=== PATIENT | male | born 1965 | race Hispanic/Latino ===

== ENCOUNTER 2021-03-26 03:31 | Emergency (ER) | payer OTHER ==
[~2021-03-26] VITALS: Ht 180.3 cm; Wt 122.5 kg
[2021-03-26 03:48] VITALS: BP 143/76
[2021-03-26] MEDS ORDERED: MORPHINE 4 MG SYG IM SCH (06:30)
[2021-03-26] MEDS ORDERED: IBUPROFEN 600 MG TABLET PO SCH (06:30)
[2021-03-26] MEDS ORDERED: ACET1TAB27 PO (06:58)
== END 2021-03-26 07:57 | disposition home or self-care (01) ==
LOC: EDH 03:31
DX: M75.01 Adhesive capsulitis of right shoulder (principal); E11.9 Type 2 diabetes mellitus without complications; I10 Essential (primary) hypertension; Z79.1 Long term (current) use of non-steroidal anti-inflammatories (NSAID)
CPT/HCPCS: 73030; 96372; 99283; J2270

== ENCOUNTER 2021-03-29 20:30 | Emergency (ER) | payer OTHER ==
[~2021-03-29] VITALS: Ht 180.3 cm; Wt 122.5 kg
[~2021-03-29 20:30] MED LIST: ACET1TAB27 PO
[2021-03-29 20:32] VITALS: BP 130/100
== END 2021-03-29 20:59 | disposition left against medical advice (07) ==
LOC: EDH 20:30
DX: M25.512 Pain in left shoulder (principal); M25.511 Pain in right shoulder; R50.9 Fever, unspecified; E11.9 Type 2 diabetes mellitus without complications; I10 Essential (primary) hypertension
CPT/HCPCS: 99281

== ENCOUNTER → 2021-04-24 | Emergency (ER) | payer OTHER ==
[~2021-04-24] VITALS: Ht 180.3 cm; Wt 125.2 kg
[2021-04-24 11:15] VITALS: BP 114/77
== END | disposition left against medical advice (07) ==
LOC: EDH 11:06
DX: M25.531 Pain in right wrist (principal); Z53.21 Procedure and treatment not carried out due to patient leaving prior to being seen by health care provider

== ENCOUNTER 2022-12-08 21:41 | Inpatient (IN) | payer BC, OTHER ==
[~2022-12-08] VITALS: Ht 175.3 cm; Wt 125.5 kg
[~2022-12-08 21:41] MED LIST changes: -ACET1TAB27 PO; +ACET1TAB97 PO
[2022-12-08] MEDS ORDERED: ACETAMINOPHEN 325 MG TAB PO PRN (23:30)
[2022-12-08] MEDS ORDERED: HYDRALAZINE 20MG/ML VIAL IV PRN (23:30)
[2022-12-08] MEDS ORDERED: MORPHINE 2 MG SYG IVP PRN (23:30)
[2022-12-08] MEDS ORDERED: ALBUTEROL 0.083% 2.5 MG/3 ML INH IH PRN (23:30)
[2022-12-08] MEDS ORDERED: ACETAMINOPHEN 650 MG SUPPOSITORY RC PRN (23:30)
[2022-12-08] MEDS ORDERED: LABETALOL 20MG SYG IV PRN (23:30)
[2022-12-08] MEDS ORDERED: LACTULOSE 20 GM/30 ML UDCUP PO PRN (23:30)
[2022-12-08 23:41] LABS: BASOPHILS # (AUTO) 0.03 K/uL (0.00-0.20); BASOPHILS % (AUTO) 0.4 % (0.0-5.0); EOSINOPHILS % (AUTO) 2.9 % (0.0-8.0); HEMATOCRIT 39.2 % (42-54); IMMATURE GRANULOCYTE ABSOLUTE 0.03 K/uL (0-1); LYMPHOCYTES # (AUTO) 1.1 K/uL (1.0-4.8); LYMPHOCYTES % (AUTO) 16.3 % (21.0-51.0); MEAN CORPUSCULAR HEMOGLOBIN 30.8 pg (27.0-33.0); MEAN CORPUSCULAR HGB CONC 34.4 g/dL (32.0-36.0); MEAN CORPUSCULAR VOLUME 89.5 fL (79-99); MONOCYTES # (AUTO) 0.8 K/uL (0.1-1.0); MONOCYTES % (AUTO) 11.6 % (3.0-13.0); NEUTROPHILS # (AUTO) 4.6 K/uL (1.8-7.7); NEUTROPHILS % (AUTO) 68.4 % (40.0-77.0); PLATELET COUNT (AUTO) 166 K/uL (130-400); RED BLOOD CELL COUNT(AUTO) 4.38 MIL/uL (4.50-6.20); RED CELL DISTRIBUTION WIDTH 12.8 % (11.0-15.5); WHITE BLOOD COUNT (AUTO) 6.8 K/uL (4.8-10.8)
[2022-12-08] MEDS: LACTATED RINGERS 1000ML 1,000 ML IV SCH (23:50)
[2022-12-08 23:54] LABS: INR 0.93 (0.85-1.15); PROTHROMBIN TIME 10.6 SEC (9.6-11.6)
[2022-12-08 23:55] LABS: ALBUMIN 3.2 g/dL (3.5-5.0); BILIRUBIN,TOTAL 0.5 mg/dL (0.2-1.0); TOTAL PROTEIN, SERUM 7.3 g/dL (6.0-8.3)
[2022-12-08 23:56] LABS: PARTIAL THROMBOPLASTIN TIME 29.9 SEC (26.3-35.5)
[2022-12-09] VITALS (20 sets, daily range): BP systolic 106–176; BP diastolic 59–87; PULSE 60–77; RESP 15–20; O2SAT 97
[2022-12-09] MEDS ORDERED: 0.9%NACL 50ML IV SCH
[2022-12-09] MEDS ORDERED: VANCOMYCIN PROTOCOL PER PHARMACY IV SCH
[2022-12-09] MEDS: INSULIN HUMULIN R 100 UNIT/ML 3ML SQ SCH ×4 (00:02→18:00)
[2022-12-09] MEDS: ZOSYN 3.375GM +NS 50ML IVPB SCH ×3 (00:02→16:00)
[2022-12-09 02:11] LABS: HEMOGLOBIN A1C 7.7 % (4.0-6.0)
[2022-12-09 05:20] LABS: BASOPHILS # (AUTO) 0.03 K/uL (0.00-0.20); BASOPHILS % (AUTO) 0.5 % (0.0-5.0); EOSINOPHILS # (AUTO) 0.22 K/uL (0.00-0.70); EOSINOPHILS % (AUTO) 3.5 % (0.0-8.0); HEMATOCRIT 39.1 % (42-54); IMMATURE GRANULOCYTE ABSOLUTE 0.04 K/uL (0-1); LYMPHOCYTES % (AUTO) 15.5 % (21.0-51.0); MEAN CORPUSCULAR HEMOGLOBIN 30.5 pg (27.0-33.0); MEAN CORPUSCULAR HGB CONC 34.3 g/dL (32.0-36.0); MEAN CORPUSCULAR VOLUME 89.1 fL (79-99); MONOCYTES # (AUTO) 0.7 K/uL (0.1-1.0); MONOCYTES % (AUTO) 11.3 % (3.0-13.0); NEUTROPHILS # (AUTO) 4.4 K/uL (1.8-7.7); NEUTROPHILS % (AUTO) 68.6 % (40.0-77.0); PLATELET COUNT (AUTO) 178 K/uL (130-400); RED BLOOD CELL COUNT(AUTO) 4.39 MIL/uL (4.50-6.20); RED CELL DISTRIBUTION WIDTH 12.9 % (11.0-15.5); WHITE BLOOD COUNT (AUTO) 6.4 K/uL (4.8-10.8)
[2022-12-09 06:10] LABS: CREATININE 0.9 mg/dL (0.5-1.5); MAGNESIUM 1.4 mg/dL (1.80-2.40); PHOSPHORUS 3.8 mg/dL (2.5-4.9); POTASSIUM 3.8 mmol/L (3.5-5.1)
[2022-12-09] MEDS: ENOXAPARIN SODIUM 40 MG/0.4 ML SYRINGE SQ SCH (08:10)
[2022-12-09] MEDS: LACTATED RINGERS 1000ML 1,000 ML IV SCH ×3 (08:11→23:30)
[2022-12-09] MEDS: FAMOTIDINE 20MG TAB PO SCH ×2 (08:11→21:19)
[2022-12-09] MEDS ORDERED: MAGNESIUM 2GM PREMIX 50ML 50 ML IV SCH (09:00)
[2022-12-09] MEDS ORDERED: ACETAMINOPHEN 325 MG SUPPOSITORY RC PRN (14:30)
[2022-12-09 14:46] LABS: SARS-CoV-2, RNA, NAAT NEGATIVE SARS CoV-2 (NEGATIVE)
[2022-12-09] MEDS ORDERED: VANCOMYCIN 2GM/500 ML BAG 500 ML IV SCH (15:30)
[2022-12-09] MEDS ORDERED: ALBUTEROL 0.083% 2.5 MG/3 ML INH IH PRN (15:30)
[2022-12-09] MEDS ORDERED: LIDOCAINE HCL 1% 20 ML VIAL ONE (18:04)
[2022-12-09] MEDS ORDERED: BUPIVACAINE/PF 0.25% 30ML VIAL IJ ONE ×2 (18:05→18:56)
[2022-12-09] MEDS ORDERED: MIDAZOLAM HCL 1 MG/ML 2ML VIAL ONE (18:15)
[2022-12-09] MEDS ORDERED: FENTANYL CITRATE PF 50 MCG/1 ML 2ML VIAL ONE ×2 (18:15→18:23)
[2022-12-09] MEDS ORDERED: ONDANSETRON 4MG INJ ONE (18:15)
[2022-12-09] MEDS ORDERED: PROPOFOL 1000 MG/100 ML 100 ML IV ONE (18:23)
[2022-12-09] MEDS ORDERED: LIDOCAINE 2%-EPI 1:200,000 20 ML VIAL IJ ONE (18:55)
[2022-12-09] MEDS ORDERED: PHENYLEPHRINE HCL 10 MG/ML 1ML VIAL IV ONE (19:30)
[2022-12-09] MEDS ORDERED: ERGO500093 PO (23:08)
[2022-12-09] MEDS ORDERED: FOLI0.4T6 PO (23:27)
[2022-12-09] MEDS ORDERED: PANT40GR PO (23:27)
[2022-12-09] MEDS ORDERED: TADA20TA43 PO (23:27)
[2022-12-09] MEDS ORDERED: METF-446 PO (23:27)
[2022-12-09] MEDS ORDERED: AMOX1TAB16 PO (23:27)
[2022-12-09] MEDS ORDERED: CARI3CAP PO (23:27)
[2022-12-09] MEDS ORDERED: LORA10TA7 PO (23:27)
[2022-12-09] MEDS ORDERED: GLIP10TA9 PO (23:27)
[2022-12-09] MEDS ORDERED: LISI1TAB51 PO (23:27)
[2022-12-09] MEDS ORDERED: FLUV100T22 PO (23:27)
[2022-12-09] MEDS ORDERED: BUPR100T13 PO (23:27)
[2022-12-09] MEDS ORDERED: BACL10TA PO (23:27)
[2022-12-10] VITALS (9 sets, daily range): BP systolic 127–175; BP diastolic 74–91; PULSE 68–81; RESP 20; O2SAT 98
[2022-12-10] MEDS: ZOSYN 3.375GM +NS 50ML IVPB SCH ×4 (00:10→23:49)
[2022-12-10] MEDS: INSULIN HUMULIN R 100 UNIT/ML 3ML SQ SCH ×4 (00:12→16:33)
[2022-12-10 05:31] LABS: HEMATOCRIT 39.8 % (42-54); MEAN CORPUSCULAR HGB CONC 34.2 g/dL (32.0-36.0); MEAN CORPUSCULAR VOLUME 90.7 fL (79-99); RED BLOOD CELL COUNT(AUTO) 4.39 MIL/uL (4.50-6.20); RED CELL DISTRIBUTION WIDTH 12.9 % (11.0-15.5); WHITE BLOOD COUNT (AUTO) 8.1 K/uL (4.8-10.8)
[2022-12-10 05:41] LABS: CREATININE 0.9 mg/dL (0.5-1.5); MAGNESIUM 1.5 mg/dL (1.80-2.40); POTASSIUM 3.8 mmol/L (3.5-5.1)
[2022-12-10] MEDS ORDERED: VANCOMYCIN 1.5 GM/250 ML BAG 250 ML IV SCH (06:00)
[2022-12-10] MEDS: LACTATED RINGERS 1000ML 1,000 ML IV SCH ×3 (06:14→21:34)
[2022-12-10] MEDS ORDERED: BACLOFEN 10 MG TABLET PO PRN (08:00)
[2022-12-10] MEDS ORDERED: MAGNESIUM 4GM PREMIX 100ML 100 ML IV PRN (08:00)
[2022-12-10] MEDS: CARIPRAZINE HYDROCHLORIDE 3 MG PO SCH (09:00)
[2022-12-10] MEDS ORDERED: BUPROPION HCL 150 MG PO SCH (09:00)
[2022-12-10] MEDS ORDERED: NON-FORMULARY MEDICATION 1 EACH (Lisinopril/Hydrochlorothiazide (Lisinopril-Hctz 20-12.5 m PO SCH (09:00)
[2022-12-10] MEDS ORDERED: BUPROPION HCL 150 MG TABLET.SA PO SCH (09:00)
[2022-12-10] MEDS ORDERED: NON-FORMULARY MEDICATION 1 EACH (Folic Acid 1 MG) PO SCH (09:00)
[2022-12-10] MEDS ORDERED: COMPOUND IV REFRIGERATED 1 EACH IVSOLN MISC PRN (09:00)
[2022-12-10] MEDS: FOLIC ACID 1 MG TABLET PO SCH (09:01)
[2022-12-10] MEDS: HYDROCHLOROTHIAZIDE 25 MG TABLET PO SCH (09:02)
[2022-12-10] MEDS: HYDROCODONE/ACETAMINOPHEN 5/325 MG TAB PO PRN ×2 (09:03→21:35)
[2022-12-10] MEDS: LISINOPRIL 20 MG TABLET PO SCH (09:04)
[2022-12-10] MEDS: LORATADINE 10 MG TABLET PO SCH (09:04)
[2022-12-10] MEDS: FAMOTIDINE 20MG TAB PO SCH ×2 (09:04→20:23)
[2022-12-10] MEDS: ENOXAPARIN SODIUM 40 MG/0.4 ML SYRINGE SQ SCH (09:05)
[2022-12-10] MEDS ORDERED: FLUV100T22 PO ×2 (09:17→09:21)
[2022-12-10] MEDS: VANCOMYCIN 1.5 GM/250 ML BAG 250 ML IV SCH ×2 (10:20→21:34)
[2022-12-10] MEDS: KETOROLAC 15MG/ML VIAL (15MG/ML) IV PRN (12:42)
[2022-12-10] MEDS: FLUVOXAMINE MALEATE 100 MG PO SCH (16:34)
[2022-12-10 18:43] LABS: INR 0.93 (0.85-1.15); PROTHROMBIN TIME 10.3 SEC (9.6-11.6)
[2022-12-11] VITALS (8 sets, daily range): BP systolic 127–176; BP diastolic 65–82; PULSE 71–79; RESP 19–21; O2SAT 97
[2022-12-11] MEDS: INSULIN HUMULIN R 100 UNIT/ML 3ML SQ SCH ×4 (00:03→18:27)
[2022-12-11 05:30] LABS: HEMATOCRIT 37.8 % (42-54); MEAN CORPUSCULAR HGB CONC 34.7 g/dL (32.0-36.0); MEAN CORPUSCULAR VOLUME 89.4 fL (79-99); RED BLOOD CELL COUNT(AUTO) 4.23 MIL/uL (4.50-6.20); RED CELL DISTRIBUTION WIDTH 12.7 % (11.0-15.5); WHITE BLOOD COUNT (AUTO) 7.7 K/uL (4.8-10.8)
[2022-12-11] MEDS: LACTATED RINGERS 1000ML 1,000 ML IV SCH ×3 (05:42→23:36)
[2022-12-11 05:47] LABS: CREATININE 0.9 mg/dL (0.5-1.5); POTASSIUM 3.7 mmol/L (3.5-5.1)
[2022-12-11] MEDS: CARIPRAZINE HYDROCHLORIDE 3 MG PO SCH (07:52)
[2022-12-11] MEDS: FLUVOXAMINE MALEATE 200 MG PO SCH (07:52)
[2022-12-11] MEDS ORDERED: FLUVOXAMINE MALEATE 300 MG PO SCH (09:00)
[2022-12-11] MEDS: FOLIC ACID 1 MG TABLET PO SCH (09:07)
[2022-12-11] MEDS: ZOSYN 3.375GM +NS 50ML IVPB SCH ×2 (09:07→16:47)
[2022-12-11] MEDS: FAMOTIDINE 20MG TAB PO SCH ×2 (09:07→22:05)
[2022-12-11] MEDS: LORATADINE 10 MG TABLET PO SCH (09:07)
[2022-12-11] MEDS: HYDROCHLOROTHIAZIDE 25 MG TABLET PO SCH (09:07)
[2022-12-11] MEDS: LISINOPRIL 20 MG TABLET PO SCH (09:07)
[2022-12-11] MEDS: ENOXAPARIN SODIUM 40 MG/0.4 ML SYRINGE SQ SCH (09:17)
[2022-12-11] MEDS: KETOROLAC 15MG/ML VIAL (15MG/ML) IV PRN ×2 (09:22→17:15)
[2022-12-11] MEDS ORDERED: KETO10 PO (11:30)
[2022-12-11] MEDS ORDERED: Docusate Sodium 100 Mg Cap PO (11:30)
[2022-12-11] MEDS ORDERED: GABA100C PO (11:30)
[2022-12-11] MEDS: GABAPENTIN 100 MG CAPSULE PO SCH ×2 (12:08→22:05)
[2022-12-11] MEDS: VANCOMYCIN IV SCH (16:47)
[2022-12-11] MEDS: FLUVOXAMINE MALEATE 100 MG PO SCH (17:00)
[2022-12-11] MEDS: DOCUSATE SODIUM 100 MG CAP PO SCH (22:05)
[2022-12-11] MEDS: 0.9%NACL 10ML VIAL IV SCH (22:06)
[2022-12-12] VITALS (8 sets, daily range): BP systolic 135–184; BP diastolic 62–84; PULSE 65–75; RESP 18–21; O2SAT 99
[2022-12-12] MEDS: ZOSYN 3.375GM +NS 50ML IVPB SCH ×3 (00:19→17:25)
[2022-12-12] MEDS: INSULIN HUMULIN R 100 UNIT/ML 3ML SQ SCH ×4 (00:20→18:34)
[2022-12-12] MEDS: VANCOMYCIN IV SCH (01:56)
[2022-12-12] MEDS: LACTATED RINGERS 1000ML 1,000 ML IV SCH (05:28)
[2022-12-12] MEDS: CARIPRAZINE HYDROCHLORIDE 3 MG PO SCH (09:00)
[2022-12-12] MEDS: FLUVOXAMINE MALEATE 200 MG PO SCH (09:00)
[2022-12-12] MEDS: FOLIC ACID 1 MG TABLET PO SCH (09:41)
[2022-12-12] MEDS: FAMOTIDINE 20MG TAB PO SCH ×2 (09:41→20:07)
[2022-12-12] MEDS: DOCUSATE SODIUM 100 MG CAP PO SCH ×2 (09:41→20:07)
[2022-12-12] MEDS: LISINOPRIL 20 MG TABLET PO SCH (09:41)
[2022-12-12] MEDS: HYDROCHLOROTHIAZIDE 25 MG TABLET PO SCH (09:41)
[2022-12-12] MEDS: LORATADINE 10 MG TABLET PO SCH (09:41)
[2022-12-12] MEDS: 0.9%NACL 10ML VIAL IV SCH ×2 (09:41→20:11)
[2022-12-12] MEDS: GABAPENTIN 100 MG CAPSULE PO SCH ×2 (09:41→20:07)
[2022-12-12] MEDS: ENOXAPARIN SODIUM 40 MG/0.4 ML SYRINGE SQ SCH (09:44)
[2022-12-12] MEDS: KETOROLAC 15MG/ML VIAL (15MG/ML) IV PRN (09:58)
[2022-12-12] MEDS ORDERED: VANCOMYCIN IV SCH (11:00)
[2022-12-12] MEDS: FLUVOXAMINE MALEATE 100 MG PO SCH (17:00)
[2022-12-13] VITALS (9 sets, daily range): BP systolic 139–181; BP diastolic 77–92; PULSE 58–69; RESP 18–20; O2SAT 99–100
[2022-12-13] MEDS: INSULIN HUMULIN R 100 UNIT/ML 3ML SQ SCH ×4 (00:20→18:52)
[2022-12-13] MEDS: ZOSYN 3.375GM +NS 50ML IVPB SCH ×3 (00:25→17:24)
[2022-12-13] MEDS ORDERED: ALTEPLASE 2MG VIAL 2 MG/VIAL VIAL IVCATH SCH (03:00)
[2022-12-13] MEDS: KETOROLAC 15MG/ML VIAL (15MG/ML) IV PRN ×3 (03:19→13:42)
[2022-12-13] MEDS: INSULIN GLARGINE 100 UNITS/ML 10 ML VIAL SQ SCH (08:53)
[2022-12-13] MEDS: DOCUSATE SODIUM 100 MG CAP PO SCH ×2 (08:56→20:36)
[2022-12-13] MEDS: GABAPENTIN 100 MG CAPSULE PO SCH ×3 (08:56→20:36)
[2022-12-13] MEDS: LISINOPRIL 20 MG TABLET PO SCH (08:56)
[2022-12-13] MEDS: ENOXAPARIN SODIUM 40 MG/0.4 ML SYRINGE SQ SCH (08:57)
[2022-12-13] MEDS: HYDROCHLOROTHIAZIDE 25 MG TABLET PO SCH (08:57)
[2022-12-13] MEDS: FAMOTIDINE 20MG TAB PO SCH ×2 (08:57→20:36)
[2022-12-13] MEDS: CARIPRAZINE HYDROCHLORIDE 3 MG PO SCH (08:58)
[2022-12-13] MEDS: FOLIC ACID 1 MG TABLET PO SCH (08:58)
[2022-12-13] MEDS: LORATADINE 10 MG TABLET PO SCH (08:58)
[2022-12-13] MEDS: 0.9%NACL 10ML VIAL IV SCH ×2 (08:58→20:41)
[2022-12-13] MEDS: FLUVOXAMINE MALEATE 200 MG PO SCH (08:58)
[2022-12-13] MEDS ORDERED: KETOROLAC 15MG/ML VIAL (15MG/ML) IV ONE (12:30)
[2022-12-13] MEDS: HYDROCODONE/ACETAMINOPHEN 5/325 MG TAB PO PRN (12:52)
[2022-12-13] MEDS: FLUVOXAMINE MALEATE 100 MG PO SCH (17:00)
[2022-12-14 08:00] VITALS: BP 164/90; PULSE 68; RESP 18; O2SAT 97
[2022-12-14] MEDS: FLUVOXAMINE MALEATE 200 MG PO SCH (09:00)
[2022-12-14 10:29] LABS: CREATININE 0.9 mg/dL (0.5-1.5); POTASSIUM 3.8 mmol/L (3.5-5.1)
[2022-12-14] MEDS: ZOSYN 3.375GM +NS 50ML IVPB SCH ×2 (11:02→11:03)
[2022-12-14] MEDS: INSULIN HUMULIN R 100 UNIT/ML 3ML SQ SCH ×2 (11:03→11:52)
[2022-12-14] MEDS: 0.9%NACL 10ML VIAL IV SCH (11:04)
[2022-12-14] MEDS: DOCUSATE SODIUM 100 MG CAP PO SCH (11:07)
[2022-12-14] MEDS: FOLIC ACID 1 MG TABLET PO SCH (11:07)
[2022-12-14] MEDS: CARIPRAZINE HYDROCHLORIDE 3 MG PO SCH (11:08)
[2022-12-14] MEDS: LORATADINE 10 MG TABLET PO SCH (11:08)
[2022-12-14] MEDS: HYDROCHLOROTHIAZIDE 25 MG TABLET PO SCH (11:08)
[2022-12-14] MEDS: FAMOTIDINE 20MG TAB PO SCH (11:09)
[2022-12-14] MEDS: LISINOPRIL 20 MG TABLET PO SCH (11:09)
[2022-12-14] MEDS: GABAPENTIN 100 MG CAPSULE PO SCH ×2 (11:09→14:23)
[2022-12-14] MEDS: INSULIN GLARGINE 100 UNITS/ML 10 ML VIAL SQ SCH (11:12)
[2022-12-14] MEDS: ENOXAPARIN SODIUM 40 MG/0.4 ML SYRINGE SQ SCH (11:14)
[2022-12-14 11:33] VITALS: BP 174/93; PULSE 62; RESP 18
[2022-12-14 14:34] LABS: HEMATOCRIT 34.3 % (42-54); MEAN CORPUSCULAR HEMOGLOBIN 30.9 pg (27.0-33.0); MEAN CORPUSCULAR HGB CONC 35.6 g/dL (32.0-36.0); MEAN CORPUSCULAR VOLUME 86.8 fL (79-99); RED BLOOD CELL COUNT(AUTO) 3.95 MIL/uL (4.50-6.20); RED CELL DISTRIBUTION WIDTH 12.6 % (11.0-15.5); WHITE BLOOD COUNT (AUTO) 6.3 K/uL (4.8-10.8)
== END 2022-12-14 17:00 | disposition home or self-care (01) | DRG 629 ==
LOC: EDH 21:41 → OBSVTOIN 23:30 → EDHIP 23:30 → 3BH 12-09 20:35
PROVIDERS: ADMIT Internal Medicine; ATTEND Internal Medicine
PROC: 0QBQ0ZZ Excision of Right Toe Phalanx, Open Approach (ICD-10-PCS; principal; 2022-12-09 18:44)
DX: E11.69 Type 2 diabetes mellitus with other specified complication (principal); M86.8X7 Other osteomyelitis, ankle and foot; Z16.24 Resistance to multiple antibiotics; E11.621 Type 2 diabetes mellitus with foot ulcer; L97.519 Non-pressure chronic ulcer of other part of right foot with unspecified severity; I10 Essential (primary) hypertension; Z68.36 Body mass index [BMI] 36.0-36.9, adult; E66.01 Morbid (severe) obesity due to excess calories; Z20.822 Contact with and (suspected) exposure to COVID-19; E11.51 Type 2 diabetes mellitus with diabetic peripheral angiopathy without gangrene; E11.65 Type 2 diabetes mellitus with hyperglycemia; F41.9 Anxiety disorder, unspecified; F32.A Depression, unspecified; F17.200 Nicotine dependence, unspecified, uncomplicated; L03.031 Cellulitis of right toe; Z82.49 Family history of ischemic heart disease and other diseases of the circulatory system; Z83.3 Family history of diabetes mellitus; Z89.411 Acquired absence of right great toe; B96.1 Klebsiella pneumoniae [K. pneumoniae] as the cause of diseases classified elsewhere
CPT/HCPCS: 36415; 36569; 71045; 73630; 73718; 74018; 80048; 80053; 80202; 82948; 83036; 83735; 84100; 84145; 85025; 85027; 85610; 85730; 86850; 86900; 86901; 87070; 87076; 87077; 87186; 87635; 94664; C1894; G0378; J0360; J1650; J1815; J1885; J2250; J2270; J2371; J2405; J2543; J2704; J2997; J3010; J3475; J3490; J7120; J1644; J3370